=== PATIENT | male | born 1965 | race Caucasian/White ===

== ENCOUNTER 2020-06-10 10:46 | Day surgery (SDC) | payer BC ==
[~2020-06-10 10:46] MED LIST: LEVSOD75 PO; OMEP20ER PO; Prinivil10 MG PO; ROSU10TA PO
[2020-06-10 13:55] LABS: Performing Lab VERACYTE; Test Name FNA
== END 2020-06-10 22:48 | disposition home or self-care (01) ==
LOC: US 10:46
PROVIDERS: Physician Assistant Medical
DX: D49.7 Neoplasm of unspecified behavior of endocrine glands and other parts of nervous system (principal); E78.2 Mixed hyperlipidemia; E03.9 Hypothyroidism, unspecified; F17.210 Nicotine dependence, cigarettes, uncomplicated; M81.0 Age-related osteoporosis without current pathological fracture; Z79.899 Other long term (current) drug therapy; Z88.5 Allergy status to narcotic agent
CPT/HCPCS: 10005

== ENCOUNTER 2025-05-14 07:11 | Day surgery (SDC) | payer OTHER ==
[~2025-05-14] VITALS: Ht 180.3 cm; Wt 99.2 kg
[2025-05-14] VITALS (10 sets, daily range): BP systolic 100–151; BP diastolic 73–103
[~2025-05-14 07:11] MED LIST changes: +ASPI81CH PO; +ATOR40TA PO; +HYDR1TAB94 PO; +Isosorbide Mono30 MG PO; +LEVO T PO; +METO100ER PO; +NITR.4SL SL; +TELM40 PO
[2025-05-14] MEDS ORDERED: Verapamil HCL 2.5 MG/ML 2ML Injection ONE (07:32)
[2025-05-14] MEDS ORDERED: NS 250 ML IV ONE (07:33)
[2025-05-14] MEDS ORDERED: NS 1,000 ML IV ONE ×2 (07:33→08:04)
[2025-05-14] MEDS ORDERED: Heparin Sodium 1000 Units/ML 10ML MDV ONE ×2 (07:33→08:54)
[2025-05-14] MEDS ORDERED: Nitroglycerin 2 MG/20 ML BTL ONE (07:34)
[2025-05-14] MEDS ORDERED: FentaNYL Citrate 50 MCG/ML 2 ML Injection ONE (08:13)
[2025-05-14] MEDS ORDERED: Midazolam HCl 1MG / ML 2ML Vial ONE (08:13)
--- NOTE | 2025-05-14 09:15 | NUR ---
PATIENT TO RECOVERY ROOM AT 0915. PATIENT AWAKE AND ALERT, DENIES C/O PAIN. RIGHT RADIAL TR BAND SITE STABLE, W/O HEMATOMA, BLEEDING, TENDERNESS, OR SWELLING. WRIST IMMOBILIZER IN PLACE. VSS. AT BEDSIDE. DR FIGUEROA IN TO UPDATE BOTH PATIENT AND PT'S . PT DEE BREAKFAST/FLUIDS.
--- NOTE | 2025-05-14 11:09 | NUR ---
AIR REMOVED SLOWLY FROM TR BAND FROM 924 TO 954. ALL AIR REMOVED BY 954. RIGHT RADIAL SITE STABLE W/O CHANGE. WRIST IMMOBILIZER IN PLACE. PATIENT DENIES COMPLAINTS, VSS.
--- NOTE | 2025-05-14 12:14 | NUR ---
PT OOB TO DRESS AT 1155. TR BAND REMOVED AFTER, RIGHT RADIAL SITE STABLE W/O CHANGE. DRSG PLACED, WRIST IMMOBILIZER PLACED. VERBAL AND WRITTEN DISCHARGE INSTRUCTIONS GIVEN TO PT AND PT'S WITH CLEAR UNDERSTANDING. OFFICE CALLED FOR FOLLOW UP APPOINTMENT, THEY WILL REACH OUT TO PT FOR DATE AND TIME. PT DC'D HOME IN STABLE CONDITION AT 1205 IN CARE OF PT'S . PT ESCORTED OUT TO CAR VIA WHEELCHAIR. VSS.
== END 2025-05-14 13:11 | disposition home or self-care (01) ==
LOC: MHTC 07:11
DX: I25.10 Atherosclerotic heart disease of native coronary artery without angina pectoris (principal); I10 Essential (primary) hypertension; E78.00 Pure hypercholesterolemia, unspecified; J45.909 Unspecified asthma, uncomplicated; E11.9 Type 2 diabetes mellitus without complications; E03.9 Hypothyroidism, unspecified; E66.9 Obesity, unspecified; Z68.30 Body mass index [BMI] 30.0-30.9, adult; Z87.891 Personal history of nicotine dependence; Z79.82 Long term (current) use of aspirin; Z79.899 Other long term (current) drug therapy
CPT/HCPCS: 76937; 85347; 93458; 93571; 99152; 99153; A9270; C1769; C1887; C1894; J1644; J2250; J3010; J7030; J7050; Q9967